=== PATIENT | male | born 1975 | race Caucasian/White ===

== ENCOUNTER 2022-07-29 13:36 | Emergency (ER) | payer SELFPAY ==
[~2022-07-29] VITALS: Ht 172.7 cm; Wt 120.5 kg
[2022-07-29 13:45] VITALS: BP 158/85
== END 2022-07-29 18:09 | disposition left against medical advice (07) ==
LOC: EMS 13:36
DX: M54.2 Cervicalgia (principal); Z53.21 Procedure and treatment not carried out due to patient leaving prior to being seen by health care provider